=== PATIENT | male | born 1965 | race Caucasian/White ===

== ENCOUNTER → 2024-10-29 | Outpatient (CLI) | payer BC ==
[2024-10-29] MEDS: REGADENOSON 0.4 MG/5 ML PF SYG IVP ONE (10:55)
--- NOTE | 2024-10-29 13:55 | HMCSR ---
APPROVED REPORT Height: 6 ft 0in Weight: 263 lbs TEST INDICATIONS CAD The imaging protocol used to acquire images was Rest Tc-99m/stress Tc-99m 1 day Consent: The procedure was explained and understood by the patient. Informerd consent was witnessed Savannah Vizcaino RN First, low dose rest was performed then high dose stress. RESTING DATA: The resting ekg shows: Atrial Fibrillation Rest SPECT myocardial perfusion imaging was performed in supine position 51 minutes following the int ravenous injection of 11 mCi of Tc-99 Sestamibi. Time of rest injection: 08:46: Date: 10/29/2024 Time of rest imagin:37: Date: 10/29/2024 PHARMACOLOGIC STRESS: Pharmacologic stress test was performed by injecting regadenoson 0.4 mg IV push followed by the intra venous injection of 31.6 mCi of Tc-99 Sestamibi. Time of stress injection: 10:04: Date: 10/29/2024 Time of stress imagin:04: Date: 10/29/2024 Heart Rate at time of stress injection: 64 bpm. Gated Stress SPECT was performed 60 minutes after stress injection. The images were gated to evaluate regional wall motion and calculate left ventricular ejection fracti on. STRESS DETAILS Reason for Termination: Infusion complete Stress Symptoms: No chest pain or symptoms Max HR Achieved: 87 bpm % of APMHR Achieved: 55 Max Blood Pressure: 135/73 mmHg Stress ECG: Atrial Fibrillation Study quality was fair. Lung uptake was Normal. Artifact: increased GI uptake LEFT VENTRICLE Size: The left ventricular size is mildly to moderately dilated. Systolic Function:The left ventricular systolic function is mildly decreased. Wall Motion: Cannot assess regional wall motion abnormalities. The left ventricular ejection fraction was calculated to be 44%.TID = . LV PERFUSION There is patchy uptake noted throughout the myocardium of the radiotracer both on rest and stress schuyler ges. Without any evidence of distinct reversible ischemia. Conclusion Inconclusive myocardial perfusion scan [id number] LV dilatation with the ejection fraction at 44% No evidence of reversible ischemia Consider other form of evaluation for coronary atherosclerosis
== END | disposition home or self-care (01) ==
LOC: SHCH 08:16
PROVIDERS: ATTEND Internal Medicine Cardiovascular Disease
DX: I48.91 Unspecified atrial fibrillation (principal); I25.10 Atherosclerotic heart disease of native coronary artery without angina pectoris; I51.7 Cardiomegaly
CPT/HCPCS: 78452; 93017; J2785; A9500 ×2